=== PATIENT | female | born 2000 | race Hispanic/Latino ===

== ENCOUNTER 2024-11-10 09:10 | Emergency (ER) | payer OTHER ==
[~2024-11-10] VITALS: Ht 160 cm; Wt 54.0 kg
[2024-11-10 09:16] VITALS: TEMP 99.8
[2024-11-10 09:40] LABS: BASOPHILS % 0.7 % (0.0-1.0); EOSINOPHILS % 6.0 % (0.0-6.0); LYMPHOCYTES % 25.7 % (18.0-39.1); MONOCYTES % 8.6 % (4.4-11.3); NEUTROPHILS % 58.8 % (38.7-80.0); RED CELL DISTRIBUTION WIDTH 13.1 % (11.7-14.4)
[2024-11-10] MEDS: METOCLOPRAMIDE HCL 10 MG/2ML VIAL IV ONE (09:49)
[2024-11-10] MEDS: SODIUM CHLORIDE 0.9% 1000ML 1,000 ML IV ONE (09:50)
[2024-11-10 10:27] LABS: EST GLOMERULAR FILTRATION RATE 91 ML/MIN (>=60)
[2024-11-10 10:33] LABS: LEUKOCYTE ESTERASE ,URINE TRACE (NEGATIVE); PROTEIN,URINE DIPSTICK >=300 (NEGATIVE); URINE UROBILINOGEN 1 mg/dL (0.2 - 1)
[2024-11-10 11:07] LABS: EPITHELIAL CELLS,URINE FEW /LPF
[2024-11-10 13:45] VITALS: PULSE 80; RESP 18; O2SAT 100
[2024-11-10] MEDS ORDERED: CEPHALEXIN500 MG PO (13:55)
[2024-11-10] MEDS ORDERED: REGLAN10 MG PO (13:55)
[2024-11-10] MEDS ORDERED: IOPAMIDOL 370 MG/ML 100 ML INFUS..BTL INJ ONE (13:58)
== END 2024-11-10 14:11 | disposition home or self-care (01) ==
LOC: ER 09:20
DX: R30.0 Dysuria (principal); N39.0 Urinary tract infection, site not specified; R10.31 Right lower quadrant pain; R11.2 Nausea with vomiting, unspecified; R51.9 Headache, unspecified
CPT/HCPCS: 36415; 74177; 80053; 81001; 83690; 84702; 85025; 87086; 99284; J2765; J7030; Q9967